=== PATIENT | female | born 1980 | race Caucasian/White ===

== ENCOUNTER 2024-08-10 17:25 | Emergency (ER) | payer OTHER, SELFPAY ==
--- NOTE | ~2024-08-10 | XR_ITS ---
CLINICAL HISTORY: ?fish bone stuck Two views of soft tissues of the neck. COMPARISON: None FINDINGS: Prevertebral soft tissues are normal. Epiglottis is unremarkable. No fracture identified. Visualized portions of the lungs are clear. No radiopaque foreign body. No fishbone identified by radiograph. IMPRESSION: 1. Normal radiograph of the soft tissue of the neck. No fishbone identified by radiograph. No subcutaneous gas. This document has been electronically signed by: Josue Lawson MD on 08/10/2024 18:28:05
--- NOTE | ~2024-08-10 | XR_ITS ---
CLINICAL HISTORY: ?fish bone stuck Two views of the chest. COMPARISON: None FINDINGS: Normal heart and mediastinal contours. Low lung volumes. No consolidation. Crowding of the bronchovascular markings, likely secondary to low lung volumes. No pleural effusion or pneumothorax. No fracture identified. No radiopaque foreign body. IMPRESSION: 1. Low lung volumes with associated crowding of the bronchovascular markings. 2. No fishbone identified by radiograph. This document has been electronically signed by: Josue Lawson MD on 08/10/2024 18:29:37
[2024-08-10 18:01] VITALS: BP 118/39; PULSE 82; RESP 18; TEMP 36.4; O2SAT 99; BMI 34.7
--- NOTE | 2024-08-10 18:03 | ED_ITS ---
HPI - Skin/Abscess/Foreign Bdy General Chief complaint: General Medical Stated complaint: ate fish yesterday bone is in her throat Time Seen by Provider: 08/10/24 18:26 Source: patient Mode of arrival: ambulatory Limitations: no limitations History of Present Illness ED Provider: DR. Navarro HPI narrative: 44 yo F presenting to the ED c/o FB sensation to throat s/p eating fish yesterday. States fishbone stuck in her throat. able to tolerate p.o no regurgitation patient has been trying to eat fruit to help her with her symptoms., states nothing is going down Related Data Allergies Allergy/AdvReac Type Severity Reaction Status Date / Time No Known Allergies Allergy Verified 08/10/24 18:04 Review of Systems Review of Systems: all other systems are reviewed and are negative Constitutional: Reports as per HPI and Reports no additional constitutional complaints Eyes: Reports as per HPI and Reports no additional eye complaints Reports system reviewed and no additional complaints, except as documented Cardiovascular: Reports as per HPI and Reports no additional cardiovascular complaints Respiratory: Reports as per HPI and Reports no additional respiratory complaints Gastrointestinal: Reports as per HPI and Reports no additional gastrointestinal complaints Genitourinary: Reports no additional female genitourinary complaints Musculoskeletal: Reports no additional musculoskeletal complaints Skin/Breast: Reports system reviewed and no additional complaints, except as docu Psychiatric: Reports no additional psychiatric complaints Endocrine: Reports no additional endocrine complaints Hematologic/Lymphatic: Reports no additional hematologic/lymphatic complaints Allergic/Immunologic: Reports no additional allergic/immunologic complaints Reports system reviewed and no additional complaints, except as documented and Reports Abnormal speech present [facility] Social History Social History Unable to assess alcohol history related to: Unknown Smoked in Last 30 Days: No Use of substances other than those prescribed or required for medical reasons: Unknown Advance Directives: No Advance Directives Information Provided: No Do you have a plan to hurt others: No Plan Physical Exam Vital Signs: Vital Signs: Last Vital Signs Temp 97.6 F 08/10/24 18:01 Pulse 82 08/10/24 18:01 Resp 18 08/10/24 18:01 BP 118/39 L 08/10/24 18:01 Pulse Ox 99 08/10/24 18:01 O2 Del Method Room Air 08/10/24 18:01 BMI result Body Mass Index 34.7 Vital signs have been reviewed and appear to be correct. Blood pressure elevated. Heart rate normal. Respiratory rate normal. Temperature normal. Oxygen saturation normal. Appearance: Alert. Oriented X3. No acute distress. Head: Normal external exam. Normocephalic. Atraumatic. No [place] signs noted. No raccoon eyes noted Eyes: PERRLA. EOMI. Conjunctiva and sclera normal. Eyelids normal. ENT: TM's Normal. Pharynx normal. Uvula midline. Moist mucous membranes. No trismus noted. no stridor, No drooling noted. No muffled voice noted. speaks in full sentence. Neck: Normal inspection. Neck supple. FROM. No adenopathy. Thyroid Normal. No meningeal signs. No neck mass noted. CVS: Normal heart rate and rhythm. Heart sound normal. No murmurs noted. Pulses normal throughout. Respiratory: No respiratory distress. Painless inspiration. Breath sounds normal. No wheezes/rales/rhonchi noted. Chest nontender. No accessory muscle usage noted or decreased air movement noted. Abdomen: Soft and nontender. Bowel sounds normal in all 4 quadrants. No distention noted. No organomegaly noted. No visible injury noted. Back: No CVA tenderness. Full range of motion noted. Skin: Skin warm and dry. Normal skin color. Normal skin turgor. No rashes/lesions/lacerations noted. Extremities: No lower extremity edema. Extremities exhibit normal range of motion. Extremities nontender. Neuro: Oriented X 3. Cranial nerve exam: II-XII are grossly intact No motor deficit. No sensory deficit. Reflexes normal. Course Course Course Narrative: This is a Rapid Medical Exam performed in triage by Es Love PA-C. Full HPI, ROS and PE to be performed by primary ED provider. 44-year-old female came in for evaluation Foreign body sensation in the throat PE: Talking in complete sentences, nontoxic appearing, handling secretions Plan: X-ray Reevaluation(s) Reevaluation #1: 44-year-old female with VSS, stable upper airway with possible fishbone stuck in the throat, patient is able to speak in the full sentence able to tolerate p.o. intake. X-ray reveals no foreign body in the throat, will discharge the patient and with GI Time: 18:49 Medical Decision Making Differential Diagnosis Differential Diagnoses: The differential diagnosis associated with the presentation includes ( foreign body in the throat, airway compromise.) Admission/Observation Consideration of admission/observation: Escalation of care including admission/observation considered Discharge Plan Discharge Clinical Impression: Feeling of foreign body in throat Patient Disposition: Home, Self-Care Instructions: Esophageal Foreign Body (ED) Additional Instructions: drink plenty of fluids. Referrals: Karen Gutiérrez MD [Physician] - Print Language: Bahamian
[2024-08-10 18:55] VITALS: BP 114/62; PULSE 82; RESP 18; TEMP 36.4; O2SAT 99
== END 2024-08-10 18:56 | disposition home or self-care (01) ==
PROVIDERS: Emergency Provider Emergency Medicine
DX: R09.89 Other specified symptoms and signs involving the circulatory and respiratory systems (principal); M54.2 Cervicalgia
CPT/HCPCS: 70360; 71046; 99283

== ENCOUNTER → 2024-08-10 17:34 | Outpatient (BNV) | payer OTHER, SELFPAY | PROVIDERS: Emergency Provider Emergency Medicine; Visit Provider Radiology Diagnostic Radiology | DX: Z03.821 Encounter for observation for suspected ingested foreign body ruled out (principal) | CPT/HCPCS: 70360; 71046 ==